=== PATIENT | female | born 1930 | race Caucasian/White ===

== ENCOUNTER 2018-05-12 08:00 | Outpatient (CLI) | payer MEDICARE, OTHER ==
[2018-05-12 13:38] LABS: CALCIUM 9.3 mg/dL (8.5-10.3)
== END 2018-05-12 08:01 | disposition home or self-care (01) ==
LOC: LAB.WCP 08:00
PROVIDERS: ATTEND Internal Medicine Cardiovascular Disease
DX: I48.0 Paroxysmal atrial fibrillation (principal)
CPT/HCPCS: 36415; 80048